=== PATIENT | female | born 1995 | race Caucasian/White ===

== ENCOUNTER 2017-08-13 02:22 | Emergency (ER) | payer MEDICAID ==
[~2017-08-13] VITALS: Ht 157.5 cm; Wt 48.0 kg
[2017-08-13 04:16] LABS: BASOPHILS % 0.2 % (0.0-2.0); EOSINOPHILS % 0.3 % (0.0-5.0); HEMOGLOBIN. 13.9 g/dL (12.0-16.0); LYMPHOCYTES % 8.5 % (20.0-50.0); MEAN CORPUSCULAR HEMOGLOBIN 31.3 pg (28.0-32.0); MEAN CORPUSCULAR VOLUME 92.2 fL (81.0-99.0); MEAN PLATELET VOLUME 8.5 fl (7.4-10.4); MONOCYTES % 5.8 % (2.0-8.0); NEUTROPHILS % 85.2 % (40.0-76.0); PLATELET 257 x1000/uL (130-400); RED BLOOD CELL COUNT 4.45 mill/uL (4.2-5.4); RED CELL DISTRIBUTION WIDTH 12.2 % (11.6-14.6)
[2017-08-13 04:22] LABS: CHLORIDE 105 mEq/L (98-107)
[2017-08-13 04:47] LABS: B-HCG QUANTITATIVE 9112 mIU/mL (<3)
[2017-08-13 05:53] LABS: CLARITY URINE TURBID (CLEAR); KETONES URINE 4+ (NEGATIVE); LEUKOCYTE ESTERASE URINE 2+ (NEGATIVE); NITRITE URINE POSITIVE (NEGATIVE); OCCULT BLOOD URINE 3+ (NEGATIVE); PH URINE 5.5 (4.5-8.0); PROTEIN URINE 2+ (NEGATIVE); SPECIFIC GRAVITY URINE 1.027 (1.005-1.030)
[2017-08-13 05:56] LABS: COLOR URINE BLOODY (YELLOW)
[2017-08-13] MEDS ORDERED: ACETAMINOPHEN 325MG TABLET PO ONE (06:15)
[2017-08-13 06:30] VITALS: BP 113/77
== END 2017-08-13 06:32 | disposition home or self-care (01) ==
LOC: ER 02:22 → EDBD 02:22 → ER 06:32
DX: O02.1 Missed abortion (principal); O08.83 Urinary tract infection following an ectopic and molar pregnancy; N39.0 Urinary tract infection, site not specified; O08.89 Other complications following an ectopic and molar pregnancy; F15.10 Other stimulant abuse, uncomplicated; F11.10 Opioid abuse, uncomplicated; F17.210 Nicotine dependence, cigarettes, uncomplicated
CPT/HCPCS: 36415; 76830; 76856; 80053; 81003; 81025; 84702; 85025; 86850; 86900; 87086; 93005; 99285